=== PATIENT | female | born 1970 | race Two or more races ===

== ENCOUNTER 2019-07-15 12:31 | Outpatient (CLI) | payer OTHER | END 2019-07-15 17:05 | disposition home or self-care (01) | LOC: MAMO-SONO 12:31 → SONOGRAMA 14:45 → MAMO-SONO 17:05 | DX: N60.11 Diffuse cystic mastopathy of right breast (principal); N60.12 Diffuse cystic mastopathy of left breast; N63.11 Unspecified lump in the right breast, upper outer quadrant ==